=== PATIENT | female | born 1995 | race African-American/Black ===

== ENCOUNTER 2022-01-28 00:27 | Emergency (ER) | payer SELFPAY ==
[~2022-01-28] VITALS: Ht 160 cm; Wt 79.5 kg
[2022-01-28 00:28] VITALS: BP 124/78
[2022-01-28] MEDS ORDERED: EPIP0.3I2 IM (00:42)
[2022-01-28] MEDS ORDERED: PYRI1TAB5 PO (01:26)
[2022-01-28] MEDS ORDERED: BACT800T5 PO (01:27)
[2022-01-28] MEDS ORDERED: BACTRIM 160MG/800MG DS TAB PO ONE (01:30)
[2022-01-28] MEDS ORDERED: PHENAZOPYRIDINE 100 MG TAB PO ONE (01:35)
== END 2022-01-28 01:47 | disposition home or self-care (01) ==
LOC: M ED 00:27
DX: N39.0 Urinary tract infection, site not specified (principal); R31.9 Hematuria, unspecified; R39.15 Urgency of urination; D89.40 Mast cell activation, unspecified